=== PATIENT | female | born 1960 | race Caucasian/White ===

== ENCOUNTER 2020-07-18 10:32 | Day surgery (SDC) | payer MEDICARE ==
[2012-09-24 07:39] VITALS: BP 175/88
[2020-07-18] MEDS ORDERED: BUPIVACAINE 0.5% VIAL IJ ONE (10:33)
[2020-07-18] MEDS ORDERED: Depo-Medrol 40 MG/ML IM ONE (10:33)
[2020-07-18] MEDS ORDERED: DIPRIVAN 200 MG/20 ML IV ONE (11:43)
--- NOTE | 2020-07-18 12:45 | XRAY ---
Indication: Bilateral greater trochanteric bursa injections. Intraoperative fluoroscopy provided for 22 seconds. 2 digital spot images submitted for interpretation demonstrates needle tip projecting just lateral to the left and right greater trochanters. Small amount of contrast injected for both needle tip placement. Correlate with intraoperative findings/report.
--- NOTE | 2020-07-18 13:07 | XRAY ---
22 seconds of fluoroscopy was used in surgery for bilateral greater trochanteric bursa injections,
[2020-07-18] MEDS ORDERED: Lactated Ringers 1,000 ML IV ONE (15:55)
== END 2020-07-18 12:18 | disposition home or self-care (01) ==
LOC: SDC-PAIN 10:32
PROVIDERS: ATTEND Psychiatry & Neurology Pain Medicine
DX: M70.62 Trochanteric bursitis, left hip (principal); M70.61 Trochanteric bursitis, right hip; J44.9 Chronic obstructive pulmonary disease, unspecified; J45.909 Unspecified asthma, uncomplicated; M19.90 Unspecified osteoarthritis, unspecified site; K21.9 Gastro-esophageal reflux disease without esophagitis; H40.9 Unspecified glaucoma; I10 Essential (primary) hypertension; M81.0 Age-related osteoporosis without current pathological fracture; F41.9 Anxiety disorder, unspecified; F32.9 Major depressive disorder, single episode, unspecified; Z79.899 Other long term (current) drug therapy
CPT/HCPCS: 20610; 73521; 77002; J1030; J2704; Q9966

== ENCOUNTER 2020-09-19 16:04 | Day surgery (SDC) | payer MEDICARE ==
[2012-09-24 07:39] VITALS: BP 175/88
[2020-09-19] MEDS ORDERED: LIDOCAINE HCL 2% 100 MG/5 ML IJ ONE (16:05)
[2020-09-19] MEDS ORDERED: Depo-Medrol 40 MG/ML IM ONE (16:05)
[2020-09-19] MEDS ORDERED: DIPRIVAN 200 MG/20 ML IV ONE (17:02)
[2020-09-19] MEDS ORDERED: Lactated Ringers 1,000 ML IV ONE (18:00)
--- NOTE | 2020-09-20 12:04 | XRAY ---
14 seconds fluoroscopy time in surgery for bilateral L4-S1 MBB.
--- NOTE | 2020-09-23 01:02 | XRAY ---
Indication: Bilateral L4-S1 MBB. Intraoperative fluoroscopy was provided for 14 seconds. A single digital spot image submitted for interpretation demonstrates posterior needle tips projected over the expected left and right L4-S1 nerve roots. Correlate with intraoperative findings/report.
== END 2020-09-19 18:05 | disposition home or self-care (01) ==
LOC: SDC-PAIN 16:04
PROVIDERS: ATTEND Psychiatry & Neurology Pain Medicine
DX: M47.816 Spondylosis without myelopathy or radiculopathy, lumbar region (principal); Z79.899 Other long term (current) drug therapy
CPT/HCPCS: 64493; 64494; 72100; 77002; J1030; J2704

== ENCOUNTER 2020-11-07 12:50 | Day surgery (SDC) | payer MEDICARE ==
[2012-09-24 07:39] VITALS: BP 175/88
[2020-11-07] MEDS ORDERED: BUPIVACAINE 0.5% VIAL IJ ONE (12:51)
[2020-11-07] MEDS ORDERED: DIPRIVAN 200 MG/20 ML IV ONE (14:10)
[2020-11-07] MEDS ORDERED: Proair Hfa MDI IH ONE (14:22)
[2020-11-07] MEDS ORDERED: Lactated Ringers 1,000 ML IV ONE (16:15)
--- NOTE | 2020-11-08 11:20 | XRAY ---
21 seconds fluoroscopy time in surgery for bilateral L4-S1 MBB.
--- NOTE | 2020-11-10 22:56 | XRAY ---
Indication: Bilateral L4-S1 MBB. Intraoperative fluoroscopy was provided for 21 seconds. A single digital spot image submitted for interpretation demonstrate posterior needle tips projected over the expected left and right L4-S1 nerve roots. Correlate with intraoperative findings/report.
== END 2020-11-07 14:32 | disposition home or self-care (01) ==
LOC: SDC-PAIN 12:50
PROVIDERS: ATTEND Psychiatry & Neurology Pain Medicine
DX: M47.816 Spondylosis without myelopathy or radiculopathy, lumbar region (principal); Z79.899 Other long term (current) drug therapy
CPT/HCPCS: 64493; 64494; 72020; 77002; J2704; A9270-GY

== ENCOUNTER 2020-11-28 09:30 | Day surgery (SDC) | payer MEDICARE ==
[2012-09-24 07:39] VITALS: BP 175/88
[2020-11-28] MEDS ORDERED: BUPIVACAINE 0.5% VIAL IJ ONE (09:31)
[2020-11-28] MEDS ORDERED: Depo-Medrol 40 MG/ML IM ONE (09:31)
[2020-11-28] MEDS ORDERED: Xylocaine 1% Vial 30 ML PF IJ ONE (09:31)
[2020-11-28] MEDS ORDERED: DIPRIVAN 200 MG/20 ML IV ONE ×2 (10:23→10:35)
--- NOTE | 2020-11-28 13:01 | XRAY ---
Indication: Right L4-S1 RFA. Intraoperative fluoroscopy provided for 44 seconds. 4 digital spot image submitted for interpretation demonstrate posterior needle tips projecting over the expected right L4-S1 nerve roots. Correlate with intraoperative findings/report.
--- NOTE | 2020-11-28 13:03 | XRAY ---
44 seconds fluoroscopy time in surgery for right L4-S1 RFA.
[2020-11-28] MEDS ORDERED: Lactated Ringers 1,000 ML IV ONE (15:25)
== END 2020-11-28 10:57 | disposition home or self-care (01) ==
LOC: SDC-PAIN 09:30
PROVIDERS: ATTEND Psychiatry & Neurology Pain Medicine
DX: M47.816 Spondylosis without myelopathy or radiculopathy, lumbar region (principal); Z79.899 Other long term (current) drug therapy
CPT/HCPCS: 64635; 64636; 72100; 77002; J1030; J2001; J2704

== ENCOUNTER 2020-12-12 12:03 | Day surgery (SDC) | payer MEDICARE ==
[2012-09-24 07:39] VITALS: BP 175/88
[2020-12-12] MEDS ORDERED: BUPIVACAINE 0.5% VIAL IJ ONE (12:04)
[2020-12-12] MEDS ORDERED: Depo-Medrol 40 MG/ML IM ONE (12:04)
[2020-12-12] MEDS ORDERED: Xylocaine 1% Vial 30 ML PF IJ ONE (12:04)
[2020-12-12] MEDS ORDERED: DIPRIVAN 200 MG/20 ML IV ONE (13:30)
--- NOTE | 2020-12-12 14:49 | XRAY ---
Indication: Left L4-S1 RFA. Intraoperative fluoroscopy provided for 33 seconds. 3 digital spot images submitted for interpretation demonstrates posterior needle tips projecting over the expected left L4-S1 nerve roots. Correlate with intraoperative findings/report.
--- NOTE | 2020-12-12 15:09 | XRAY ---
33 seconds fluoroscopy time in surgery for L4-S1 RFA.
[2020-12-12] MEDS ORDERED: Lactated Ringers 1,000 ML IV ONE (17:27)
== END 2020-12-12 13:59 | disposition home or self-care (01) ==
LOC: SDC-PAIN 12:03
PROVIDERS: ATTEND Psychiatry & Neurology Pain Medicine
DX: M47.817 Spondylosis without myelopathy or radiculopathy, lumbosacral region (principal); J44.9 Chronic obstructive pulmonary disease, unspecified; J45.909 Unspecified asthma, uncomplicated; M19.90 Unspecified osteoarthritis, unspecified site; K21.9 Gastro-esophageal reflux disease without esophagitis; I10 Essential (primary) hypertension; M81.0 Age-related osteoporosis without current pathological fracture; Z79.899 Other long term (current) drug therapy
CPT/HCPCS: 64635; 64636; 72100; 77002; J1030; J2001; J2704

== ENCOUNTER 2021-03-13 15:13 | Day surgery (SDC) | payer MEDICARE ==
[2012-09-24 07:39] VITALS: BP 175/88
[2021-03-13] MEDS ORDERED: BUPIVACAINE 0.5% VIAL IJ ONE (15:14)
[2021-03-13] MEDS ORDERED: DIPRIVAN 200 MG/20 ML IV ONE (15:14)
[2021-03-13] MEDS ORDERED: Depo-Medrol 40 MG/ML IM ONE (15:14)
[2021-03-13] MEDS ORDERED: Lactated Ringers 1,000 ML IV ONE (17:25)
--- NOTE | 2021-03-13 19:07 | XRAY ---
Indication: Bilateral greater trochanter bursa injection. Intraoperative fluoroscopy provided for 19 seconds. 2 digital spot image submitted for interpretation demonstrates needle tip projecting lateral to the left and right greater trochanters. Small amount of contrast injected for both needle tip placement. Correlate with intraoperative findings/report.
--- NOTE | 2021-03-14 09:34 | XRAY ---
19 seconds fluoroscopy time in surgery for injections of the greater trochanters of both hips.
== END 2021-03-13 18:05 | disposition home or self-care (01) ==
LOC: SDC-PAIN 15:13
PROVIDERS: ATTEND Psychiatry & Neurology Pain Medicine
DX: M47.816 Spondylosis without myelopathy or radiculopathy, lumbar region (principal); I10 Essential (primary) hypertension; Z79.899 Other long term (current) drug therapy
CPT/HCPCS: 20610; 73521; 77002; J1030; J2704; Q9966

== ENCOUNTER 2021-04-24 14:57 | Day surgery (SDC) | payer MEDICARE ==
[2012-09-24 07:39] VITALS: BP 175/88
[2021-04-24] MEDS ORDERED: Sodium Chloride 0.9(Preservative Free) 10 ML IJ ONE (17:00)
[2021-04-24] MEDS ORDERED: Xylocaine 1% Vial 30 ML PF IJ ONE (17:00)
[2021-04-24] MEDS ORDERED: Decadron 4 MG INJ IV ONE (17:00)
[2021-04-24] MEDS ORDERED: Depo-Medrol 40 MG/ML IM ONE (17:00)
[2021-04-24] MEDS ORDERED: DIPRIVAN 200 MG/20 ML IV ONE (17:40)
[2021-04-24] MEDS ORDERED: Lactated Ringers 1,000 ML IV ONE (18:35)
--- NOTE | 2021-04-24 20:39 | XRAY ---
Indication: Left L4-S1 transforaminal HALIMA. Intraoperative fluoroscopy provided for 22 seconds. 4 digital spot image submitted for interpretation demonstrates posterior needle tips projecting over the expected left L4 and L5 nerve roots. Small amount of contrast injected for needle tip placement. Correlate with intraoperative findings/report.
--- NOTE | 2021-04-24 20:41 | XRAY ---
Indication: Left piriformis injection. Intraoperative fluoroscopy provided for 31 seconds. Single digital spot image submitted for interpretation demonstrates posterior needle tip projecting over the expected left piriformis muscle. Small amount of contrast injected for needle tip placement. Correlate with intraoperative findings/report.
--- NOTE | 2021-04-25 08:58 | XRAY ---
31 seconds fluoroscopy time in surgery for injection opf the left piriformis muscle.
--- NOTE | 2021-04-25 08:58 | XRAY ---
22 seconds fluoroscopy time in surgery for left L4-S1 transforaminal HALIMA.
== END 2021-04-24 18:07 | disposition home or self-care (01) ==
LOC: SDC-PAIN 14:57
PROVIDERS: ATTEND Psychiatry & Neurology Pain Medicine
DX: M54.16 Radiculopathy, lumbar region (principal); I10 Essential (primary) hypertension; Z79.899 Other long term (current) drug therapy
CPT/HCPCS: 20552; 64483; 64484; 72020; 72100; 77002; 77003; J1030; J1100; J2001; J2704; Q9966

== ENCOUNTER 2021-06-26 11:14 | Day surgery (SDC) | payer MEDICARE ==
[2012-09-24 07:39] VITALS: BP 175/88
[~2021-06-26 11:14] MED LIST: DIPRIVAN 200 MG/20 ML IV ONE
[2021-06-26] MEDS ORDERED: Depo-Medrol 40 MG/ML IM ONE (11:15)
[2021-06-26] MEDS ORDERED: Sodium Chloride 0.9(Preservative Free) 10 ML IJ ONE (11:15)
[2021-06-26] MEDS ORDERED: DIPRIVAN 200 MG/20 ML IV ONE (13:41)
[2021-06-26] MEDS ORDERED: Lactated Ringers 1,000 ML IV ONE (13:41)
--- NOTE | 2021-06-26 16:35 | XRAY ---
Indication: Right L4-S1 transforaminal HALIMA. Intraoperative fluoroscopy provided for 1 minute. 4 digital spot image submitted for interpretation demonstrates posterior needle tips projecting over the expected right L4 and L5 nerve roots. Small amount of contrast injected for needle tip placement. Correlate with intraoperative findings/report.
--- NOTE | 2021-06-26 17:07 | XRAY ---
1 minute of fluoroscopy was used in surgery for a right L4-S1 transforaminal HALIMA.
== END 2021-06-26 14:09 | disposition home or self-care (01) ==
LOC: SDC-PAIN 11:14
PROVIDERS: ATTEND Psychiatry & Neurology Pain Medicine
DX: M54.16 Radiculopathy, lumbar region (principal); I10 Essential (primary) hypertension; Z79.899 Other long term (current) drug therapy
CPT/HCPCS: 20610; 64483; 64484; 72100; 77002; 77003; J1030; J2704; Q9966

== ENCOUNTER 2021-08-28 12:08 | Day surgery (SDC) | payer MEDICARE ==
[2012-09-24 07:39] VITALS: BP 175/88
[2021-08-28] MEDS ORDERED: DIPRIVAN 200 MG/20 ML IV ONE (12:09)
[2021-08-28] MEDS ORDERED: Marcaine Mpf 0.5% Vial 30 Ml IJ ONE (12:09)
[2021-08-28] MEDS ORDERED: Depo-Medrol 40 MG/ML IM ONE (12:09)
[2021-08-28] MEDS ORDERED: Lactated Ringers 1,000 ML IV ONE (16:28)
--- NOTE | 2021-08-28 16:32 | XRAY ---
Indication: Bilateral greater trochanteric bursa injection. Intraoperative fluoroscopy provided for 20 seconds. 2 digital spot image submitted for interpretation demonstrates needle tip just lateral to the left and right greater trochanters. Small amount of contrast injected for both needle tip placement. Correlate with intraoperative findings/report.
--- NOTE | 2021-08-28 16:35 | XRAY ---
20 seconds of fluoroscopy was used in surgery for bilateral hips greater trochanteric bursa injections.
== END 2021-08-28 15:12 | disposition home or self-care (01) ==
LOC: SDC-PAIN 12:08
PROVIDERS: ATTEND Psychiatry & Neurology Pain Medicine
DX: M70.62 Trochanteric bursitis, left hip (principal); M70.61 Trochanteric bursitis, right hip; Z79.899 Other long term (current) drug therapy
CPT/HCPCS: 20610; 73521; 77002; J1030; J2704; Q9966